=== PATIENT | male | born 1950 | race Caucasian/White ===

== ENCOUNTER 2019-01-27 07:30 | Emergency (ER) | payer OTHER, MEDICAID ==
[~2019-01-27] VITALS: Ht 172.7 cm; Wt 84.5 kg
[2019-01-27 07:35] VITALS: BP 173/95; PULSE 66; RESP 18; Ht 172.7 cm; Wt 84.5 kg
[2019-01-27] MEDS ORDERED: ACET500C5 PO (09:03)
--- NOTE | 2019-01-27 09:28 | ERD ---
ER Documentation Chief Complaint Chief Complaint trip and fall in yard, denies ko HPI 68-year-old male presenting with abrasion to his right eyebrow after he tripped and fell in his yard earlier today. Patient has some mild pain to his right wrist and an abrasion to his right knee. He denies any loss of consciousness and is not on blood thinners. He is acting normal per family with no vomiting. Has a little bit of headache. Has not taken medications since the incident happened. Medical history is hypertension hypercholesterolemia. NKDA. Surgical history is hernia repaired. Social history denies ROS All systems reviewed and are negative except as per history of present illness. Medications Home Meds Active Scripts Acetaminophen* (Tylophen*) 500 Mg Capsule, 1 CAP PO Q6H PRN for PAIN AND OR ELEVATED TEMP, #20 CAP Prov:MIREYA DIAZ PA-C 01/27/19 Allergies Allergies: Coded Allergies: No Known Allergies (Verified Allergy, Mild, 01/09/11) PMhx/Soc History of Surgery: Yes (hernia repair) Anesthesia Reaction: No Hx Neurological Disorder: No Hx Respiratory Disorders: No Hx Cardiac Disorders: Yes (HIGH CHOLESTEROL AND HTN., ) Hx Psychiatric Problems: No Hx Miscellaneous Medical Probl: No Hx Alcohol Use: No Hx Substance Use: No Hx Tobacco Use: No FmHx Family History: No diabetes, No coronary disease, No other Physical Exam Vitals Vital Signs Date Temp Pulse Resp B/P (MAP) Pulse Ox O2 O2 Flow FiO2 Time Delivery Rate 01/27/19 97.9 66 18 173/95 99 07:35 (121) Physical Exam GENERAL: The patient is well-appearing, well-nourished, in no acute distress HEENT: Atraumatic. Conjunctivae are pink. Pupils equal, round, and reactive to light. There is no scleral icterus. Tympanic membranes clear bilaterally. Oropharynx clear. CHEST: Clear to auscultation bilaterally. There are no rales, wheezes or rhonchi. HEART: Regular rate and rhythm. No murmurs, clicks, rubs or gallops. EXTREMITIES: Equal pulses bilaterally. There is no peripheral clubbing, cyanosis or edema. No focal swelling or erythema. Full range of motion. NEUROLOGIC: Alert and oriented. Cranial nerves II through XII intact. Motor strength in all 4 extremities with 5 out of 5 strength. Sensation grossly intact. Normal speech and gait. SKIN: Abrasion noted to right eyebrow. No obvious laceration. Patient noted to right knee Procedures/MDM DIAGNOSTIC IMAGING REPORT Patient: AVRIL NICOLE : 1950 Age: 68 Sex: M MR #: [id number] DOS: 01/27/19 0754 Ordering MD: EBONIE DIAZ PA-C Location: [facility] Room/Bed: PROCEDURE: CT Brain without contrast. CLINICAL INDICATION: Trauma, status post fall. TECHNIQUE: A CT of the brain was performed on a multi-slice CT scanner utilizing axial imaging from the skull base through the vertex without intravenous contrast. Multiplanar reformatted images were made. One or more the following dose reduction techniques were utilized: Automated exposure control, adjustment of the mA/ or kV according to patient's size, or use of iterative reconstruction technique. DICOM images are available for review. The CTDIvol is 37.6 mGy and the DLP is 634.2 mGycm. COMPARISON: None. FINDINGS: There is no intracranial hemorrhage, mass effect, or midline shift. No extra- axial fluid collection is seen. Mild atrophy is identified with compensatory ventricular and sulcal enlargement. Minimal decreased attenuation is seen in the periventricular and deep white matter, compatible with microvascular ischemic disease. Focal encephalomalacia gliosis is seen in the left parietal lobe, compatible with sequelae from a prior infarct. No acute infarct is detected. The osseous structures and visualized paranasal sinuses are unremarkable. IMPRESSION: 1. No evidence of acute intracranial pathology. 2. Mild diffuse atrophy. 3. There is minimal microvascular ischemic disease in the periventricular and deep white matter. 4. 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 DIAGNOSTIC IMAGING REPORT Patient: AVRIL NICOLE : 1950 Age: 68 Sex: M MR #: [id number] DOS: 01/27/19 0754 Ordering MD: EBONIE DIAZ PA-C Location: [facility] Room/Bed: PROCEDURE: CT facial bones CLINICAL INDICATION: Trauma. Right brow laceration. TECHNIQUE: A CT of the facial bones was performed on a GE 64-slice CT scanner utilizing high-resolution axial images. Sagittal, coronal, and multiplanar reformatted images were made. Additionally, 3-D reformatted images were made. One or more the following dose reduction techniques were utilized: Automated exposure control, adjustment of the mA/ or kV according to patient's size, or use of iterative reconstruction technique. DICOM images are available for review. The CTDIvol is 29.4 mGy and the DLP is 620.3 mGycm. COMPARISON: None. FINDINGS: The osseous structures are intact with no evidence of fracture. The orbits, as visualized, appear intact. The overlying soft tissues are grossly unremarkable. The visualized paranasal sinuses are clear. incidental note is made of periodontal disease surrounding the left mandibular premolars, most pronounced along the first premolar. There is also lucent lesion surrounding the left first maxillary molar, which may reflect a benign granulomatous lesion. Breach of the buccal cortex is seen. IMPRESSION: 1. No evidence of acute fracture or significant soft tissue injury. 2. There is periodontal disease as outlined above. MDM: 68-year-old male presenting with head injury after fall earlier today. I have low suspicion for intracranial hemorrhage or neuro deficit. Patient's exam is non-concerning and CT scan is within normal limits. Patient is not on blood thinners. Patient is discharged with strict head precautions. Patient sustained an abrasion but there is no indication for repair of laceration. Patient is told if symptoms change or worsen to return immediately to the ER. All questions answered at discharge Departure Diagnosis: Primary Impression: Abrasion Additional Impression: Fall Condition: Stable Patient Instructions: Abrasion, Fall, Mechanical Additional Instructions: FOLLOW UP WITH YOUR PRIMARY CARE PHYSICIAN TOMORROW.Return to this facility if you are not improving as expected. MIREYA DIAZ PA-C Jan 27, 2019 09:28
== END 2019-01-27 09:13 | disposition home or self-care (01) ==
LOC: FTE 07:30
DX: S00.211A Abrasion of right eyelid and periocular area, initial encounter (principal); S80.211A Abrasion, right knee, initial encounter; I10 Essential (primary) hypertension; R51 Headache; W01.0XXA Fall on same level from slipping, tripping and stumbling without subsequent striking against object, initial encounter; Y92.096 Garden or yard of other non-institutional residence as the place of occurrence of the external cause
CPT/HCPCS: 70450; 70486